=== PATIENT | male | born 1940 | race African-American/Black ===

== ENCOUNTER 2018-07-01 05:24 | Inpatient (IN) ==
[2018-07-01] MEDS ORDERED: LACTATED RINGERS 1,000 ML IV SCH (05:30)
[2018-07-01] MEDS ORDERED: VANCOMYCIN 1,000 MG VIAL ONE (05:47)
[2018-07-01] MEDS ORDERED: ceFAZolin 1,000 MG VIAL ONE (05:47)
[2018-07-01] MEDS ORDERED: VANCOMYCIN INJ 1,000 MG in SODIUM CHLORIDE 0.9% 250 ML IV ONE (06:00)
[2018-07-01] MEDS ORDERED: ceFAZolin 1,000 MG in SYRINGE 1 EACH IV ONE (06:00)
[2018-07-01] MEDS ORDERED: ACETAMINOPHEN 500 MG TABLET ONE (06:23)
[2018-07-01] MEDS ORDERED: GABAPENTIN 400 MG CAPSULE ONE (06:23)
[2018-07-01] MEDS ORDERED: ACETAMINOPHEN 500 MG TABLET PO ONE (06:24)
[2018-07-01] MEDS ORDERED: GABAPENTIN 400 MG CAPSULE PO ONE (06:24)
[2018-07-01] MEDS ORDERED: ROPIVACAINE 0.5% 30 ML VIAL ONE (06:35)
[2018-07-01] MEDS ORDERED: oxyCODONE IR 5 MG TABLET PO PRN ×2 (07:16)
[2018-07-01] MEDS ORDERED: MORPHINE 4 MG/1 ML VIAL IV PRN ×2 (07:16)
[2018-07-01] MEDS ORDERED: diphenhydrAMINE CAP 25 MG CAPSULE PO PRN (07:16)
[2018-07-01] MEDS ORDERED: ONDANSETRON 4 MG/2 ML VIAL IV PRN (07:16)
[2018-07-01] MEDS ORDERED: ZALEPLON 5 MG CAPSULE PO PRN (07:16)
[2018-07-01] MEDS ORDERED: DEXTROSE 50% 25 GM/50 ML VIAL IV PRN (07:19)
[2018-07-01] MEDS ORDERED: GLUCAGON 1 MG VIAL IM PRN (07:19)
[2018-07-01] MEDS ORDERED: BACITRACIN OINT 0.9 GM PACK TOP ONE (08:33)
[2018-07-01] MEDS ORDERED: BALSALAZIDE DISODIUM 1500 MG PO SCH (09:00)
[2018-07-01] MEDS: LACTATED RINGERS 1,000 ML IV SCH ×3 (09:05→20:58)
[2018-07-01] MEDS: INSULIN LISPRO 100 UNIT/ML SUBCUT SCH ×4 (09:15→22:12)
[2018-07-01] MEDS ORDERED: PROPOFOL 200 MG/20 ML VIAL IV ONE (09:22)
[2018-07-01] MEDS ORDERED: BUPIVACAINE SPINAL 0.75% 2 ML AMP SPINAL ONE (09:23)
[2018-07-01] MEDS ORDERED: LIDOCAINE 1% 5 ML VIAL ONE (09:23)
[2018-07-01] MEDS ORDERED: MIDAZOLAM 2 MG/2 ML VIAL ONE (09:23)
[2018-07-01] MEDS ORDERED: fentaNYL 100 MCG/2 ML VIAL ONE (09:23)
[2018-07-01] MEDS ORDERED: DEXAMETHASONE 4 MG/1 ML VIAL ONE (09:25)
[2018-07-01] MEDS ORDERED: TRANEXAMIC ACID 1,000 MG/10 ML VIAL ONE (09:25)
[2018-07-01] MEDS ORDERED: KETAMINE 500 MG/10 ML VIAL ONE (09:25)
[2018-07-01] MEDS ORDERED: ONDANSETRON 4 MG/2 ML VIAL ONE (09:25)
[2018-07-01] MEDS ORDERED: ETOMIDATE 40 MG/20 ML VIAL IV ONE (09:25)
[2018-07-01] MEDS ORDERED: SODIUM CHLORIDE 0.9% 200 ML IV ONE (09:26)
[2018-07-01] MEDS ORDERED: PHENYLEPHRINE 1 MG/10 ML SYRINGE IV ONE (09:26)
[2018-07-01] MEDS: DOCUSATE SODIUM 100 MG CAPSULE PO SCH ×2 (10:23→20:53)
[2018-07-01] MEDS: TAMSULOSIN 0.4 MG CAPSULE PO SCH (10:23)
[2018-07-01] MEDS: KETOROLAC 15 MG/1 ML VIAL IV SCH ×3 (10:23→22:10)
[2018-07-01] MEDS: MULTIVITAMIN (CENTRUM) TABLET PO SCH (10:23)
[2018-07-01 11:48] LABS: Basophils % 0.5 % (0.0-0.8); Eosinophils % 0.6 % (0.00-10.9); Hematocrit 36.5 VOL% (42.0-52.0); Hemoglobin 11.4 GM/DL (14.0-18.0); Immature Granulocytes % 0.3 %; Immature Granulocytes Absolute 0.02 #; Lymphocytes # 0.7 10*3/uL (1.4-4.0); Lymphocytes % 10.8 % (21.2-54.2); Mean Corpuscular HGB Conc 31.2 GM/DL (32-36); Mean Corpuscular Volume 92.9 FL (87-102); Mean Platelet Volume 10.1 FL (9.6-12.0); Monocytes % 2.7 % (1.7-12.7); Neutrophils % 85.1 % (38.7-73.9); Platelet Count 192 T/CUMM (130-400); Red Blood Count 3.93 MC/CUMM (3.8-5.5); Red Cell Distribution Width 14.6 % (9.3-17.3); White Blood Count 6.4 T/CUMM (4-12)
[2018-07-01 12:14] LABS: Calcium 8.9 MG/DL (8.5-10.1); Osmolality,Calculated 279.5 MOS/KG (273-304)
[2018-07-01] MEDS: ceFAZolin 2,000 MG in PREMIX 1 EACH IV SCH ×2 (14:01→21:00)
[2018-07-01] MEDS: clonazePAM 0.5 MG TABLET PO SCH (20:52)
[2018-07-01] MEDS: FONDAPARINUX 2.5 MG/0.5 ML SYRINGE SUBCUT SCH (22:11)
[2018-07-02] MEDS: KETOROLAC 15 MG/1 ML VIAL IV SCH (03:12)
[2018-07-02] MEDS: LACTATED RINGERS 1,000 ML IV SCH ×2 (04:31→16:23)
[2018-07-02 05:03] LABS: Basophils % 0.2 % (0.0-0.8); Eosinophils % 0.7 % (0.00-10.9); Hematocrit 28.4 VOL% (42.0-52.0); Hemoglobin 8.9 GM/DL (14.0-18.0); Immature Granulocytes % 0.2 %; Immature Granulocytes Absolute 0.01 #; Lymphocytes # 1.2 10*3/uL (1.4-4.0); Lymphocytes % 28.5 % (21.2-54.2); Mean Corpuscular HGB Conc 31.3 GM/DL (32-36); Mean Corpuscular Volume 91.3 FL (87-102); Mean Platelet Volume 10.3 FL (9.6-12.0); Monocytes % 6.5 % (1.7-12.7); Neutrophils % 63.9 % (38.7-73.9); Platelet Count 151 T/CUMM (130-400); Red Blood Count 3.11 MC/CUMM (3.8-5.5); Red Cell Distribution Width 14.6 % (9.3-17.3)
[2018-07-02 05:30] LABS: Osmolality,Calculated 277.7 MOS/KG (273-304)
[2018-07-02 05:33] LABS: Albumin 2.7 G/DL (3.4-5.0); Bilirubin,Total 0.8 MG/DL (0.2-1.0); Calcium 8.1 MG/DL (8.5-10.1); Osmolality,Calculated 276.7 MOS/KG (273-304); Total Protein 5.6 G/DL (6.4-8.3)
[2018-07-02] MEDS: INSULIN LISPRO 100 UNIT/ML SUBCUT SCH ×4 (08:30→21:11)
[2018-07-02] MEDS: MULTIVITAMIN (CENTRUM) TABLET PO SCH (08:38)
[2018-07-02] MEDS: LISINOPRIL 10 MG TABLET PO SCH (08:39)
[2018-07-02] MEDS: TAMSULOSIN 0.4 MG CAPSULE PO SCH (08:39)
[2018-07-02] MEDS: azaTHIOprine 50 MG TABLET PO SCH (08:39)
[2018-07-02] MEDS: DOCUSATE SODIUM 100 MG CAPSULE PO SCH ×2 (08:39→21:07)
[2018-07-02] MEDS: glipiZIDE 5 MG TABLET PO SCH (08:39)
[2018-07-02] MEDS: clonazePAM 0.5 MG TABLET PO SCH (21:07)
[2018-07-02] MEDS: BALSALAZIDE DISODIUM 2250 MG PO SCH (21:07)
[2018-07-02] MEDS: FONDAPARINUX 2.5 MG/0.5 ML SYRINGE SUBCUT SCH (21:07)
[2018-07-03 04:18] LABS: Apearance,Urine CLEAR (Clear); Bilirubin,Urine Negative (Negative); Blood, Urine Negative (Negative); Glucose,Urine (UA) Negative (Negative); Ketones,Urine Negative (Negative); Mucus,Urine Occasional /LPF (Occasional); Nitrite,Urine Negative (Negative); Protein,Urine Negative; RBC,Urine <1 /HPF (0-4); Squamous Epithelial Cell,Urine Occasional /HPF (0-10); Urine Color Straw (Yellow); Urine Specific Gravity 1.009 (1.001-1.035); Urine Urobilinogen < 2.0 EU/DL (0.2-1.0); WBC,Urine <1 /HPF (0-6)
[2018-07-03 06:05] LABS: Basophils % 0.7 % (0.0-0.8); Eosinophils # 0.1 10*3/uL (0.0-0.87); Eosinophils % 3.2 % (0.00-10.9); Hematocrit 28.5 VOL% (42.0-52.0); Hemoglobin 9.1 GM/DL (14.0-18.0); Immature Granulocytes % 0.5 %; Immature Granulocytes Absolute 0.02 #; Lymphocytes % 22.7 % (21.2-54.2); Mean Corpuscular HGB Conc 31.9 GM/DL (32-36); Mean Corpuscular Volume 91.6 FL (87-102); Mean Platelet Volume 10.7 FL (9.6-12.0); Monocytes % 12.2 % (1.7-12.7); Neutrophils % 60.7 % (38.7-73.9); Platelet Count 150 T/CUMM (130-400); Red Blood Count 3.11 MC/CUMM (3.8-5.5); Red Cell Distribution Width 14.6 % (9.3-17.3); White Blood Count 4.4 T/CUMM (4-12)
[2018-07-03 06:09] LABS: Osmolality,Calculated 275.7 MOS/KG (273-304)
[2018-07-03] MEDS: INSULIN LISPRO 100 UNIT/ML SUBCUT SCH ×4 (08:08→21:12)
[2018-07-03] MEDS: glipiZIDE 5 MG TABLET PO SCH (09:08)
[2018-07-03] MEDS: BALSALAZIDE DISODIUM 2250 MG PO SCH ×3 (09:08→21:13)
[2018-07-03] MEDS: LISINOPRIL 10 MG TABLET PO SCH (09:08)
[2018-07-03] MEDS: TAMSULOSIN 0.4 MG CAPSULE PO SCH (09:09)
[2018-07-03] MEDS: DOCUSATE SODIUM 100 MG CAPSULE PO SCH ×2 (09:09→21:07)
[2018-07-03] MEDS: MULTIVITAMIN (CENTRUM) TABLET PO SCH (09:09)
[2018-07-03] MEDS: azaTHIOprine 50 MG TABLET PO SCH (09:09)
[2018-07-03] MEDS: MAGNESIUM HYDROXIDE SUSP 30 ML UDCUP PO PRN ×2 (10:19→16:41)
[2018-07-03] MEDS ORDERED: BISACODYL 5 MG TABLET PO PRN (19:26)
[2018-07-03] MEDS: FONDAPARINUX 2.5 MG/0.5 ML SYRINGE SUBCUT SCH (21:07)
[2018-07-03] MEDS: clonazePAM 0.5 MG TABLET PO SCH (21:07)
[2018-07-04] MEDS: INSULIN LISPRO 100 UNIT/ML SUBCUT SCH (08:11)
[2018-07-04] MEDS: BALSALAZIDE DISODIUM 2250 MG PO SCH (08:17)
[2018-07-04] MEDS: glipiZIDE 5 MG TABLET PO SCH (08:18)
[2018-07-04] MEDS: LISINOPRIL 10 MG TABLET PO SCH (08:18)
[2018-07-04] MEDS: TAMSULOSIN 0.4 MG CAPSULE PO SCH (08:18)
[2018-07-04] MEDS: MULTIVITAMIN (CENTRUM) TABLET PO SCH (08:19)
[2018-07-04] MEDS: azaTHIOprine 50 MG TABLET PO SCH (08:19)
[2018-07-04] MEDS: DOCUSATE SODIUM 100 MG CAPSULE PO SCH (08:19)
[2018-07-04 11:25] VITALS: BP 121/83
== END 2018-07-04 11:20 | disposition swing bed (61) | DRG 470 ==
LOC: N.OR 05:24 → N.SDSINP 05:25 → N.3E 07:16 → N.OR 08:40 → N.3E 09:48
PROVIDERS: ADMIT Orthopaedic Surgery; ATTEND Orthopaedic Surgery

== ENCOUNTER 2020-07-21 20:13 | Inpatient (IN) ==
[2020-07-21] MEDS ORDERED: ONDANSETRON 4 MG/2 ML VIAL IV ONE (21:51)
[2020-07-21] MEDS ORDERED: MORPHINE 4 MG/1 ML VIAL IV STA ×2 (21:51→23:32)
[2020-07-21 22:22] LABS: Basophils % 0.5 % (0.0-0.8); Eosinophils # 0.1 10*3/uL (0.0-0.87); Eosinophils % 0.8 % (0.00-10.9); Hematocrit 41.5 VOL% (42.0-52.0); Hemoglobin 13.4 GM/DL (14.0-18.0); Immature Granulocytes % 0.3 %; Immature Granulocytes Absolute 0.02 #; Lymphocytes # 1.2 10*3/uL (1.4-4.0); Lymphocytes % 17.6 % (21.2-54.2); Mean Corpuscular HGB Conc 32.3 GM/DL (32-36); Mean Corpuscular Volume 90.8 FL (87-102); Mean Platelet Volume 10.2 FL (9.6-12.0); Monocytes % 6.3 % (1.7-12.7); Neutrophils % 74.5 % (38.7-73.9); Platelet Count 167 T/CUMM (130-400); Red Blood Count 4.57 MC/CUMM (3.8-5.5); Red Cell Distribution Width 14.4 % (9.3-17.3); White Blood Count 6.6 T/CUMM (4-12)
[2020-07-21 22:45] LABS: Albumin 4.1 G/DL (3.4-5.0); Bilirubin,Total 0.6 MG/DL (0.2-1.0); Calcium 9.1 MG/DL (8.5-10.1); Osmolality,Calculated 283.4 MOS/KG (273-304); Potassium 4.6 MMOL/L (3.5-5.1); Total Protein 7.9 G/DL (6.4-8.2)
[2020-07-21 23:05] LABS: Bilirubin,Urine Negative (Negative); Blood, Urine Negative (Negative); Glucose,Urine (UA) Negative (Negative); Ketones,Urine Negative (Negative); Mucus,Urine Occasional /LPF (Occasional); Nitrite,Urine Negative (Negative); Protein,Urine Negative; RBC,Urine 2 /HPF (0-4); Urine Appearance CLEAR (Clear); Urine Color Yellow (Yellow); Urine Specific Gravity 1.019 (1.001-1.035); Urine Urobilinogen < 2.0 EU/DL (0.2-1.0)
[2020-07-22] MEDS ORDERED: MORPHINE 4 MG/1 ML VIAL IV PRN (00:30)
[2020-07-22] MEDS ORDERED: ONDANSETRON 4 MG/2 ML VIAL IV PRN ×2 (00:30→03:08)
[2020-07-22] MEDS ORDERED: PROMETHAZINE 25 MG/1 ML VIAL IM PRN (03:08)
[2020-07-22] MEDS ORDERED: CLINDAMYCIN INJ 900 MG/50 ML PREMIX IV ONE (03:08)
[2020-07-22] MEDS ORDERED: DEXTROSE 50% 25 GM/50 ML VIAL IV PRN (03:08)
[2020-07-22] MEDS ORDERED: GLUCAGON 1 MG VIAL IM PRN (03:08)
[2020-07-22] MEDS ORDERED: HYDROmorphone 2 MG/1 ML VIAL IV PRN (03:08)
[2020-07-22 05:51] LABS: Calcium 8.8 MG/DL (8.5-10.1); Osmolality,Calculated 277.5 MOS/KG (273-304); Potassium 4.4 MMOL/L (3.5-5.1)
[2020-07-22] MEDS ORDERED: GABAPENTIN 400 MG CAPSULE PO ONE (06:47)
[2020-07-22] MEDS ORDERED: ACETAMINOPHEN 500 MG TABLET PO ONE (06:47)
[2020-07-22] MEDS: INSULIN REGULAR 100 UNIT/ML SUBCUT SCH ×3 (07:15→19:21)
[2020-07-22] MEDS ORDERED: SILDENAFIL 20 MG TABLET PO PRN (07:37)
[2020-07-22] MEDS ORDERED: propofoL 200 MG/20 ML VIAL IV ONE (08:03)
[2020-07-22] MEDS ORDERED: LIDOCAINE 2% 5 ML VIAL ONE (08:03)
[2020-07-22] MEDS ORDERED: fentaNYL 100 MCG/2 ML VIAL ONE (08:03)
[2020-07-22] MEDS ORDERED: ROCURONIUM 50 MG/5 ML VIAL IV ONE (08:03)
[2020-07-22] MEDS ORDERED: DEXMEDETOMIDINE 200 MCG/2 ML VIAL ONE (08:06)
[2020-07-22] MEDS ORDERED: DEXAMETHASONE 4 MG/1 ML VIAL ONE (08:09)
[2020-07-22] MEDS ORDERED: LIDOCAINE 1% 5 ML VIAL ONE (08:09)
[2020-07-22] MEDS ORDERED: ROPIVACAINE 0.5% 30 ML VIAL ONE (08:09)
[2020-07-22] MEDS ORDERED: TISSUE ADHESIVE 1 EACH APPLICATOR TOP ONE (08:25)
[2020-07-22] MEDS ORDERED: PANTOPRAZOLE 40 MG TABLET PO SCH (09:00)
[2020-07-22] MEDS ORDERED: SUGAMMADEX 200 MG/2 ML VIAL IV ONE (09:44)
[2020-07-22] MEDS ORDERED: SEVOFLURANE 1 UNIT/15 MINUTE INH ONE (10:00)
[2020-07-22] MEDS: MULTIVITAMIN (CENTRUM) TABLET PO SCH (10:54)
[2020-07-22] MEDS: TAMSULOSIN 0.4 MG CAPSULE PO SCH (10:55)
[2020-07-22] MEDS: azaTHIOprine 50 MG TABLET PO SCH (10:56)
[2020-07-22] MEDS: PANTOPRAZOLE 40 MG TABLET PO SCH (10:56)
[2020-07-22] MEDS: LACTATED RINGERS 1,000 ML IV SCH ×2 (15:36→18:43)
[2020-07-22] MEDS ORDERED: TEMAZEPAM 15 MG CAPSULE PO SCH (21:00)
[2020-07-22] MEDS ORDERED: ENOXAPARIN 40 MG/0.4 ML SYRINGE SUBCUT SCH (21:00)
[2020-07-23] MEDS: INSULIN REGULAR 100 UNIT/ML SUBCUT SCH ×3 (01:03→11:25)
[2020-07-23] MEDS: LACTATED RINGERS 1,000 ML IV SCH ×2 (01:03→06:23)
[2020-07-23] MEDS: MULTIVITAMIN (CENTRUM) TABLET PO SCH (10:13)
[2020-07-23] MEDS: TAMSULOSIN 0.4 MG CAPSULE PO SCH (10:13)
[2020-07-23] MEDS: PANTOPRAZOLE 40 MG TABLET PO SCH (10:13)
[2020-07-23] MEDS: azaTHIOprine 50 MG TABLET PO SCH (10:13)
[2020-07-23 12:42] VITALS: BP 136/86
== END 2020-07-23 12:50 | disposition home or self-care (01) | DRG 394 ==
LOC: N.ED 20:13 → N.EDINP 07-22 00:30 → N.4E 07-22 02:31
PROVIDERS: ADMIT Surgery; ATTEND Surgery